=== PATIENT | female | born 1955 | race Caucasian/White ===

== ENCOUNTER → 2023-07-27 | Outpatient (CLI) | payer BC ==
--- NOTE | 2023-08-01 09:40 | MM ---
Reason for Exam: Screening (asymptomatic). Last mammogram was performed 1 year(s) and 1 month(s) ago. Patient History: Menarche at age 9. First Full-Term at age 22. Postmenopausal. Risk Values: Lois 5 year model risk: 1.7%. NCI Lifetime model risk: 5.0%. Prior Study Comparison: 03/25/2007 Bilateral Screening Mammogram, [facility]. 07/22/2008 Bilateral Screening Mammogram, [facility]. 04/05/2010 Bilateral Screening Mammogram, [facility]. 12/27/2016 Bilateral MG 3D screening mammo w/cad, Unknown. 03/17/2020 Bilateral MG 3D screening mammo w/cad, Unknown. 06/30/2022 Bilateral MG 3D screening mammo w/cad, Unknown. Tissue Density: There are scattered areas of fibroglandular density. Findings: Analyzed By CAD. There is no suspicious group of microcalcifications or new suspicious mass in either breast. Overall Assessment: Benign, BI-RAD 2 Management: Screening Mammogram of both breasts in 1 year. . Patient should continue monthly self-breast exams. A clinical breast exam by your physician is recommended on an annual basis. This exam should not preclude additional follow-up of suspicious palpable abnormalities. Note on Lois scores and lifetime risk: 1. A Lois score greater than 3% is considered moderate risk. If this is the case, consider specialist referral to assess eligibility for a risk reducing agent. 2. If overall lifetime risk for the development of breast cancer is 20% or higher, the patient may qualify for future screening with alternating mammogram and breast MRI. Electronically signed and approved by: Marino Gutierres M.D. Radiologis
== END | disposition home or self-care (01) ==
LOC: RADMAMWWP 09:01
PROVIDERS: ATTEND Family Medicine
DX: Z12.31 Encounter for screening mammogram for malignant neoplasm of breast (principal); Z78.0 Asymptomatic menopausal state
CPT/HCPCS: 77063; 77067